=== PATIENT | male | born 1945 | race Caucasian/White ===

== ENCOUNTER 2021-07-08 20:05 | Emergency (ER) | payer OTHER ==
[~2021-07-08] VITALS: Ht 185.4 cm; Wt 105.0 kg
--- NOTE | 2021-07-08 20:20 | PHYS DOC ---
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 at the request of his physician for an episode of hypoxia earlier in the day. Per EMS and facility staff, patient finished dialysis at 2 PM with 4.5 kg of fluid removed. Patient states he tolerated it well and then a couple hours later started feeling short of breath and supposedly had oxygen saturations in the 80s. Denies headache, lightheadedness, chest pain abdominal pain, nausea, vomiting, diarrhea. States he does not make any urine. Denies any numbness/weakness/tingling. 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 States that he is feeling much better than he was earlier and symptoms pretty much resolved. States if he gets up and moves around he does still feel little short of breath. Denies any recent traumas, travels, fevers, rash, cold/flu/cold symptoms. Review of Systems Review of Systems Review of systems otherwise unremarkable except noted in HPI Physical Exam Physical Exam Constitutional: Well developed, well nourished, no acute distress, non-toxic appearance. [] HENT: Normocephalic, atraumatic, bilateral external ears normal, oropharynx moist, no oral exudates, nose normal. [] Eyes: conjunctiva normal, no discharge. [] Neck: Normal range of motion, no tenderness, supple, no stridor. [] Cardiovascular:Heart rate regular rhythm, no murmur [] Lungs & Thorax: Bilateral breath sounds clear to auscultation [] Abdomen:soft, no tenderness, no masses, no pulsatile masses. [] Skin: Warm, dry, no erythema, no rash. [] Back: No tenderness, no CVA tenderness. [] Extremities: No tenderness, no cyanosis, no clubbing, ROM intact, no edema, left-sided fistula with good thrill and no tenderness or injuries. [] Neurologic: Alert and oriented X 3, normal motor function, normal sensory function, no focal deficits noted. [] Psychologic: Affect normal, judgement normal, mood normal. [] EKG EKG [] Radiology/Procedures Radiology/Procedures [] Heart Score C/O Chest Pain: No Risk Factors: Risk Factors: DM, Current or recent (<one month) smoker, HTN, HLP, family history of CAD, obesity. Risk Scores: Risk Factors: DM, Current or recent (<one month) smoker, HTN, HLP, family history of CAD, obesity. Course & Med Decision Making Course & Med Decision Making Patient is a 76-year-old male who presents with shortness of breath, status post dialysis at 2 PM after taking 4.5 kg Vital signs initially notable for hypertension on arrival which resolved quickly in the ED and vital signs are now normal. Physical exam noted above. EKG with a rate of 69, QRS of 98, QTc 459, sinus rhythm, no STEMI. Troponin normal. BNP slightly elevated. Chest x-ray not concerning. Laboratory analysis approximately baseline postdialysis. Patient asymptomatic. Discussed all findings with patient and offered observation in the emergency department till the morning. Patient stated he was feeling well, and was ready to leave. Discussed all findings with patient and advised to follow-up first thing with facility physician in the morning to discuss ED visit. Advised not to miss dialysis appointment Sunday morning. Gave strict return precautions to the ED. Patient grateful, verbalized understanding and agreed with plan of discharge. [] Dragon Disclaimer Dragon Disclaimer This electronic medical record was generated, in whole or in part, using a voice recognition dictation system. Departure Departure: Impression: Primary Impression: Dialysis patient Additional Impression: Cough Disposition: 01 HOME / SELF CARE / HOMELESS Condition: STABLE Referrals: CAMERON CORTEZ MD Patient Instructions: Dialysis, Dialysis, Care After Additional Instructions: Thank you for coming into the emergency department tonight and allowing us to take care of you. Please read the attached information carefully to go back over some of the things we discussed. It is very important that you follow-up with your primary care physician in the morning at the facility to update on your ED visit and set up any further diagnostics as needed. Please do not miss your dialysis appointment on Sunday. Please come back to the emergency department immediately with new or concerning symptoms as we discussed. Problem Qualifiers FRANNIE KEY MD Jul 08, 2021 20:20
--- NOTE | 2021-07-08 20:30 | EKG ---
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
[2021-07-08 20:33] LABS: BASO % 1 % (0-3); EOS % 1 % (0-3); HEMATOCRIT 32.6 % (39.0-53.0); HEMOGLOBIN 11.1 g/dL (13.0-17.5); LYMPH # 1.2 x10^3/uL (1.0-4.8); LYMPH % 26 % (24-48); MEAN CORPUSCULAR HEMOGLOBIN 32 pg (25-35); MEAN CORPUSCULAR HGB CONC 34 g/dL (31-37); MEAN CORPUSCULAR VOLUME 94 fL (79-100); MONO # 0.5 x10^3/uL (0.0-1.1); MONO % 10 % (0-9); NEUT % 63 % (31-73); PLATELET COUNT 137 x10^3/uL (140-400); RED BLOOD COUNT 3.48 x10^6/uL (4.30-5.70); RED CELL DISTRIBUTION WIDTH 12.9 % (11.5-14.5); WHITE BLOOD COUNT 4.7 x10^3/uL (4.0-11.0)
[2021-07-08 20:42] LABS: CALCIUM 8.7 mg/dL (8.5-10.1); CREATININE 8.2 mg/dL (0.7-1.3); GFR 6.4; POTASSIUM 3.9 mmol/L (3.5-5.1)
[2021-07-08 20:55] LABS: ALBUMIN 3.9 g/dL (3.4-5.0); ALBUMIN/GLOBULIN RATIO 1.1 (1.0-1.7); MAGNESIUM 2.1 mg/dL (1.8-2.4); TOTAL BILIRUBIN 0.4 mg/dL (0.2-1.0); TOTAL PROTEIN 7.5 g/dL (6.4-8.2)
[2021-07-08 20:59] LABS: % BANDS 1 % (0-9); % EOS 1 % (0-5); % LYMPHS 21 % (24-48); % MONOS 5 % (0-10); % SEGS 72 % (35-66); ANISOCYTOSIS SLIGHT; OVALOCYTES OCC; PLT ESTIMATE ADEQUATE (ADEQUATE)
--- NOTE | 2021-07-08 21:20 | RAD ---
AP chest. HISTORY: Short of breath AP view was taken of the chest. Heart is normal in size. There is no effusion. There is linear scarri ng or atelectasis in the lateral left lung base. No other confluent areas of infiltrate are noted. Th ere is no effusion. The heart is normal in size. IMPRESSION: 1. Left lung linear scarring or atelectasis without other infiltrates. Electronically signed by: Jayce Shafer MD (07/08/2021 9:18 PM) [facility]
[2021-07-08 21:55] VITALS: BP 117/56
== END 2021-07-08 21:57 | disposition home or self-care (01) ==
LOC: ER 20:05 → EEVIPCON 20:05 → ER 21:57
DX: R05.9 Cough, unspecified (principal); R09.02 Hypoxemia; R06.02 Shortness of breath; E11.9 Type 2 diabetes mellitus without complications; Z99.2 Dependence on renal dialysis
CPT/HCPCS: 36415; 71045; 80053; 83690; 83735; 83880; 84484; 85007; 85025; 93005; 99285